=== PATIENT | female | born 2000 | race Caucasian/White ===

== ENCOUNTER → 2025-10-01 | Outpatient (REF) | payer OTHER | LOC: M PLALAB 15:25 | PROVIDERS: ATTEND Advanced Practice Midwife | DX: Z34.80 Encounter for supervision of other normal pregnancy, unspecified trimester (principal) ==

== ENCOUNTER → 2025-10-06 | Outpatient (CLI) | payer OTHER ==
[2025-10-06 14:04] LABS: PLATELET COUNT, AUTOMATED 339 10^3/uL (150-450)
[2025-10-06 14:34] LABS: HIV 1&2 SCREEN NEGATIVE (NEGATIVE)
[2025-10-06 14:42] LABS: HEPATITIS C VIRUS ABY INDEX < 0.02 INDEX (<0.8)
[2025-10-06 15:30] LABS: Trichomonas vaginalis (AMP) NOT DETECTED (NEGATIVE)
[2025-10-06 15:54] LABS: GC DNA AMPLIFICATION NEGATIVE (NEGATIVE)
== END ==
LOC: M PLALAB 10:23
PROVIDERS: ATTEND Advanced Practice Midwife
DX: Z34.01 Encounter for supervision of normal first pregnancy, first trimester (principal)